=== PATIENT | female | born 1995 | race Two or more races ===

== ENCOUNTER → 2024-03-27 | Outpatient (REF) | payer BC ==
[2024-03-27 17:50] LABS: ESTRADIOL 27.7 PG/ML; FOLLICLE STIMULATING HORMONE 7.1 mIU/ML
[2024-03-27 18:03] LABS: HCG, SERUM QUALITATIVE NEGATIVE (NEGATIVE)
[2024-03-29 12:48] LABS: TISSUE TRANSGLUTAMINASE IgA < 1.0 U/mL (<15.0)
== END ==
LOC: M LAB REF 16:40
PROVIDERS: ATTEND Nurse Practitioner Family
DX: N91.2 Amenorrhea, unspecified (principal); Z83.79 Family history of other diseases of the digestive system

== ENCOUNTER → 2024-06-19 | Outpatient (CLI) | payer BC ==
[~2024-06-19] MED LIST: PROHANCE 279.3MG/ML 5ML VIAL ONE
== END ==
LOC: M PLAIMG 10:19
PROVIDERS: ATTEND Obstetrics & Gynecology
DX: E22.1 Hyperprolactinemia (principal); D35.2 Benign neoplasm of pituitary gland
CPT/HCPCS: 70553; A9576

== ENCOUNTER → 2024-08-23 | Outpatient (REF) | payer BC ==
[2024-08-23 13:30] LABS: CORTISOL AM 7.2 UG/DL (4.3-22.4)
[2024-08-23 13:33] LABS: FOLLICLE STIMULATING HORMONE 7.2 mIU/ML; LUTEINIZING HORMONE 3.7 mIU/ML
[2024-08-23 13:35] LABS: PROLACTIN 119.57 NG/ML
== END ==
LOC: M LAB REF 12:04
PROVIDERS: ATTEND Nurse Practitioner Family
DX: E23.7 Disorder of pituitary gland, unspecified (principal)